=== PATIENT | female | born 1990 | race Caucasian/White ===

== ENCOUNTER 2016-12-17 15:53 | Emergency (ER) | payer SELFPAY ==
[~2016-12-17] VITALS: Ht 157.5 cm; Wt 62.0 kg
[2016-12-17 15:54] VITALS: BP 141/75; PULSE 101; RESP 20; TEMP 97.9; O2SAT 99
--- NOTE | 2016-12-17 15:59 | PD ---
Physical Exam Time Seen by Provider: 15:57 Narrative 26yo F c/o feeling numb to her whole body and chest pain w/ SOB. Says she drank a lot of alcohol last night and woke up not feeling good. +vomiting. Denies fever. Patient seen in triage. VS reviewed. Awaiting bed placement. Data Data Last Documented VS Vital Signs Date Time Temp Pulse Resp B/P Pulse Ox O2 Delivery O2 Flow Rate FiO2 12/17/16 15:54 97.9 101 20 141/75 99 Room Air MDM Supervised Visit with ELADIO: No Scripts No Active Prescriptions or Reported Meds Tamara Michelle Dec 17, 2016 15:59
== END 2016-12-17 17:16 | disposition left against medical advice (07) ==
LOC: NED 15:53
DX: R06.02 Shortness of breath (principal)
CPT/HCPCS: 99281